=== PATIENT | male | born 1970 | race Caucasian/White ===

== ENCOUNTER 2019-02-09 07:20 | Inpatient (IN) ==
[2019-02-09] MEDS ORDERED: SODIUM CHLORIDE 0.9% INJ ONE (07:51)
[2019-02-09] MEDS ORDERED: PROTONIX IV ONE (07:51)
[2019-02-09] MEDS ORDERED: MORPHINE IV ONE ×2 (07:51→11:11)
[2019-02-09] MEDS ORDERED: ZOFRAN IV ONE (07:51)
[2019-02-09] MEDS ORDERED: NS 1,000 ML IV ONE ×2 (07:51→11:17)
--- NOTE | 2019-02-09 08:39 | EKG Report ---
Test Performed on : 02/09/2019 07:39:36 AM Test Reason : epigastric pain Blood Pressure : / mmHG Vent. Rate : 085 BPM Atrial Rate : 085 BPM P-R Int : 148 ms QRS Dur : 088 ms QT Int : 374 ms P-R-T Axes : 026 001 025 degrees QTc Int : 445 ms Normal sinus rhythm. Normal ECG When compared with ECG of 19-JAN-2017 20:35, aberrant conduction. is no longer present Unconfirmed Result
--- NOTE | 2019-02-09 08:50 | Diag Imaging Result Doc PS360 ---
EXAM: CHEST-PORTABLE 02/09/2019 HISTORY: upright, r/o free air TECHNIQUE: AP portable upright at 0824 COMMENT: There is some pleural thickening bilaterally particularly on the left. The right-sided thickening at the costophrenic angle was not evident on the previous study of 01/19/2017, however there has been no significant change otherwise. IMPRESSION: No evidence of free intra-abdominal gas. Questionable pleural effusion or pleural thickening on the right. Electronically signed by Yosvany Dominguez 02/09/2019 8:47 AM
[2019-02-09 08:56] LABS: BASO# 0.02 X1000 (0.0-0.2); BASO% 0.2 % (0.0-0.8); EOS# 0.04 X1000 (0.0-0.7); EOS% 0.4 % (0.0-10.0); HEMATOCRIT 50.9 % (42.0-52.0); HEMOGLOBIN 16.6 g/dL (14.0-18.0); IMM GRAN# 0.02 X1000 (0.0-0.04); IMM GRAN% 0.2 % (0.0-0.5); LYMPH# 1.81 X1000 (1.2-3.4); LYMPH% 17.4 % (20.5-51.1); MCH 29.5 PG (27-31); MCHC 32.6 g/dL (33-37); MCV 90.4 FL (81-99); MONO% 5.8 % (1.7-9.3); MPV 11.1 FL (7.4-10.4); PLT 306 X1000 (130-400); RBC 5.63 XMIL (4.7-6.1); RDW 13.7 % (11.5-14.5); WBC 10.39 X1000 (4.8-10.8)
[2019-02-09 09:08] LABS: AGAP 16; ALB/GLOB RATIO 1.8; ALBUMIN 4.9 g/dL (3.5-5.0); ALKALINE PHOSPHATASE 75 U/L (32-122); BUN 13 mg/dL (8-22); CALCIUM 10.4 mg/dL (8.8-10.2); CHLORIDE 101 mmol/L (98-107); COSMO 284; CREATININE 0.9 mg/dL (0.7-1.2); ESTIMATED GFR > 60; GLUCOSE 114 mg/dL (70-104); GOT 26 U/L (10-34); GPT 33 U/L (10-44); LIPASE 20 U/L (13-60); MAGNESIUM 2.2 mg/dL (1.5-2.7); POTASSIUM 4.4 mmol/L (3.5-5.1); SODIUM 142 mmol/L (136-145); TCO2 25 mmol/L (25-35); TOTAL BILIRUBIN 0.75 mg/dL (0.20-1.00); TOTAL PROTEIN 7.6 g/dL (6.3-8.3)
[2019-02-09 09:08] LABS: URINE SOURCE CLEAN CATCH
[2019-02-09 09:11] LABS: INR 1.32; PROTIME 16.6 Seconds (11.0-16.0)
[2019-02-09 09:12] LABS: PTT 33.6 Seconds (22.3-41.8)
[2019-02-09 09:14] LABS: BILIRUBIN URINE NEGATIVE (NEGATIVE); BLOOD URINE NEGATIVE (NEGATIVE); COLOR YELLOW; GLUCOSE URINE NEGATIVE (NEGATIVE); KETONE URINE NEGATIVE (NEGATIVE); LEUKOCYTES URINE NEGATIVE (NEGATIVE); NITRITE URINE NEGATIVE (NEGATIVE); PH URINE 8.5; PROTEIN URINE 70 mg/dL (NEGATIVE); SP GRAVITY URINE 1.034; TURBIDITY URINE CLEAR (CLEAR); UR EPITHELIAL CELLS <10 /HPF (<10); URINE BACTERIA NEGATIVE /HPF; URINE RBC <10 /HPF (<10); URINE WBC <10 /HPF (<10); UROBILINOGEN URINE NORMAL (NORMAL)
--- NOTE | 2019-02-09 11:06 | Diag Imaging Result Doc PS360 ---
EXAM: CT ABD/PELVIS W/IV CONT ONLY INDICATION: hx of SBO, LLQ pain with vomiting TECHNIQUE: This exam was performed using automated exposure control, adjustment of mA or kV according to patient size, and/or use of iterative reconstruction technique. COMPARISON: 07/07/2018 FINDINGS: There is mild subsegmental atelectasis at the lung bases. There has been a prior cholecystectomy. There is mild to moderate hepatic steatosis. The spleen, pancreas, adrenal glands, kidneys, and urinary bladder are essentially unremarkable. There are multiple distended loops of small bowel containing fluid and air suggesting a fairly high-grade small bowel obstruction. There is a possible transition point at the anterior right lower quadrant on image 96 of series 4. The distal small bowel is nondistended. The colon is nondistended. There is mild distention of the stomach. There is trace free fluid in the pelvis. IMPRESSION: 1.Multiple distended loops of small bowel suggesting small bowel obstruction with a probable transition point in the right lower quadrant. 2.Other incidental/nonacute findings detailed above. Electronically signed by Derek Trevino 02/09/2019 11:03 AM
[2019-02-09] MEDS ORDERED: ZOSYN 4.5 GM in NS 100 ML IV ONE (11:11)
--- NOTE | 2019-02-09 12:45 | Diag Imaging Result Doc PS360 ---
EXAM: CHEST/ABD TUBE PLACEMENT 02/09/2019 HISTORY: confirm NG placement TECHNIQUE: AP portable semiupright at 1214 COMMENT: There is an NG tube in the fundus of the stomach. IMPRESSION: NG tube in the stomach. Electronically signed by Yosvany Dominguez 02/09/2019 12:43 PM
--- NOTE | 2019-02-09 13:06 | PROVIDER DOCUMENTATION ---
This chart was entered by Lori Martinez Scribe, acting as scribe for Marvin Lackey MD. HPI-Abdominal Pain/GI Problem - General Chief Complaint: Abdominal Pain Stated Complaint: ABD PAIN,VOMITING Time Seen by Provider: 02/09/19 07:42 Source: patient Allergies/Adverse Reactions: Patient Allergies Allergy/AdvReac Type Severity Reaction Status Date / Time No Known Allergies Allergy Verified 02/09/19 09:04 Home Medications: Home Medication List Medication Instructions Recorded Confirmed Last Taken Type Rivaroxaban [Xarelto] 20 mg PO DAILY 09/01/17 02/09/19 02/09/19 07:00 History Levothyroxine [Synthroid] 150 microgm PO DAILY@0700 07/07/18 02/09/19 02/09/19 07:00 History Folic Acid 1 mg PO DAILY 02/09/19 02/09/19 02/09/19 07:00 History - History of Present Illness-ABD Nature of Presenting Problems: Patient is a 49 year old male who presents with upper abdominal pain. States nausea, vomiting, chills and diaphoresis with abdominal pain. Reports symptoms started yesterday. States having dark brown emesis. Reports he is on Xarelto. History of small bowel obstruction due to adhesions from gallbladder surgery. Abdominal Pain Onset Location: reports: other (generalized upper) Pain Radiation: reports: no radiation Quality of Pain: reports: aching Severity in ED: reports: mild Onset/Duration: reports: 24 hours ago Timing: reports: still present Activities at Onset: reports: light activity Associated Symptoms: reports: diaphoresis, fever/chills (chills), nausea, vomiting Emesis Description: reports: other (dark brown) Bruising or Bleeding Gums?: No Similar Symptoms Previously?: Yes Recently seen or treated by another doctor?: No Review of Systems - Adult - REVIEW OF SYSTEMS - ADULT Constitutional: reports: see HPI, chills. denies: fever, fatique Eyes: reports: no symptoms reported Ears, Nose, Mouth & Throat: reports: no symptoms reported Cardiovascular: reports: no symptoms reported Respiratory: reports: no symptoms reported Gastrointestinal: reports: see HPI, abdominal pain (generalized upper), nausea, vomiting. denies: diarrhea Genitourinary: reports: no symptoms reported Musculoskeletal: reports: no symptoms reported Integumentary: reports: no symptoms reported Neurological: reports: no symptoms reported Psychiatric: reports: no symptoms reported Endocrine: reports: no symptoms reported Hematologic/Lymphatic: reports: no symptoms reported Allergic/Immunologic: reports: no symptoms reported All Other Systems: Reviewed and Negative Past History - Adult - PAST MEDICAL HISTORY-ADULT Review of Records: reports: Old Records Reviewed, Nursing Assessment Review, Medications Reviewed, Social history reviewed & non-contributory. Major Childhood Illnesses: reports: denies history Cardiovascular: reports: other (hx DVT) Respiratory: reports: sleep apnea Gastrointestinal: reports: other (SBO) Obstetrical/Gynecological: reports: denies history Genitourinary: reports: denies history Musculoskeletal: reports: denies history Neurological: reports: denies history Endocrine/Immune: reports: thyroid disorder Other Conditions: reports: denies history - PRIOR SURGERIES/PROCEDURES Surgical/Procedure History: reports: cholecystectomy, other (bowel resection) - IMMUNIZATION STATUS Childhood Immunizations: See Nurse Assessment Flu Vaccine: See Nurse Assessment - FAMILY HISTORY Family History: reviewed, not pertinent - SOCIAL HISTORY Smoking: cigarettes (former) Substance Use: denies Physical Exam-General - PHYSICAL EXAM-ADULT Initial Vital Signs Reviewed: Yes - CONSTITUTIONAL General Appearance: alert, no apparent distress. negative: lethargic - EYES Eyes: PERRL/EOMI, pink conjunctivae - HEAD, EARS, NOSE, MOUTH & THROAT HENMT: normocephalic/atraumatic, moist mucous membranes, normal ENT inspection - NECK Neck: non-tender. negative: meningismus - RESPIRATORY Respiratory: chest non-tender, lungs clear, normal breath sounds. negative: crackles, rhonchi - CARDIOVASCULAR Cardiovascular: normal peripheral pulses, regular rate, rhythm. negative: tachycardia - GASTROINTESTINAL (ABDOMEN) Abdominal Exam: soft, abnormal bowel sounds (hypo active bowel sounds), guarding (LUQ), tenderness (diffuse; worse in LLQ). negative: rigid - GENITOURINARY Rectal Exam: normal rectal tone, other (brown stool present.). negative: black stool, blood streaked stool Hemoccult Exam: heme negative stool - LYMPHATIC Lymphatic: no adenopathy - MUSCULOSKELETAL Back Exam: normal inspection, no vertebral tenderness Extremity: normal inspection. negative: deformity, pedal edema - SKIN Integumentary: normal color, normal turgor, warm/dry. negative: diaphoresis, pallor - NEUROLOGIC Neurologic: grossly normal. negative: aphasia, facial droop - PSYCHIATRIC Psych/Mental Status: normal mood/affect, oriented x 3. negative: anxious Progress - PLAN OF CARE/RESULTS Progress/Plan/Lab Results: Vital Signs - 8 hr 02/09/19 07:27 Temperature 97.6 F Pulse Rate 95 H Respiratory Rate 19 Blood Pressure 137/96 O2 Sat by Pulse Oximetry 94 L Laboratory Results - last 24 hr 02/09/19 02/09/19 02/09/19 08:03 08:03 08:03 WBC 10.39 RBC 5.63 Hgb 16.6 Hct 50.9 MCV 90.4 MCH 29.5 MCHC 32.6 L RDW Std Deviation 13.7 Plt Count 306 MPV 11.1 H Immature Gran % (Auto) 0.2 Neut % (Auto) 76.0 H Lymph % (Auto) 17.4 L [place] % (Auto) 5.8 Eos % (Auto) 0.4 Baso % (Auto) 0.2 Immature Gran # (Auto) 0.02 Neut # (Auto) 7.90 H Lymph # (Auto) 1.81 [place] # (Auto) 0.60 H Eos # (Auto) 0.04 Baso # (Auto) 0.02 PT INR PTT (Actin FS) Sodium 142 Potassium 4.4 Chloride 101 Carbon Dioxide 25 Anion Gap 16 BUN 13 Creatinine 0.9 Estimated GFR/1.73 m2 > 60 BUN/Creatinine Ratio 14 Glucose 114 H Calculated Osmolality 284 Calcium 10.4 H Magnesium 2.2 Total Bilirubin 0.75 AST 26 ALT 33 Alkaline Phosphatase 75 Troponin T Total Protein 7.6 Albumin 4.9 Globulin 2.7 Albumin/Globulin Ratio 1.8 Lipase 20 Plasma Lactate 2.3 H Urine Source Urine Color Urine Turbidity Urine pH Ur Specific [place] Urine Protein Ur Glucose (Stick) Ur Ketones (Stick) Urine Blood Urine Nitrite Urine Bilirubin Urobilinogen Dipstick Urine Leukocytes Urine WBC (Auto) Urine RBC (Auto) U Epithel Cells (Auto) Urine Bacteria (Auto) Blood Type Blood Type Confirm Antibody Screen 02/09/19 02/09/19 02/09/19 08:03 08:03 08:03 WBC RBC Hgb Hct MCV MCH MCHC RDW Std Deviation Plt Count MPV Immature Gran % (Auto) Neut % (Auto) Lymph % (Auto) [place] % (Auto) Eos % (Auto) Baso % (Auto) Immature Gran # (Auto) Neut # (Auto) Lymph # (Auto) [place] # (Auto) Eos # (Auto) Baso # (Auto) PT 16.6 H INR 1.32 PTT (Actin FS) 33.6 Sodium Potassium Chloride Carbon Dioxide Anion Gap BUN Creatinine Estimated GFR/1.73 m2 BUN/Creatinine Ratio Glucose Calculated Osmolality Calcium Magnesium Total Bilirubin AST ALT Alkaline Phosphatase Troponin T < 0.010 Total Protein Albumin Globulin Albumin/Globulin Ratio Lipase Plasma Lactate Urine Source Urine Color Urine Turbidity Urine pH Ur Specific [place] Urine Protein Ur Glucose (Stick) Ur Ketones (Stick) Urine Blood Urine Nitrite Urine Bilirubin Urobilinogen Dipstick Urine Leukocytes Urine WBC (Auto) Urine RBC (Auto) U Epithel Cells (Auto) Urine Bacteria (Auto) Blood Type O POSITIVE Blood Type Confirm Antibody Screen NEGATIVE 02/09/19 02/09/19 08:45 09:32 WBC RBC Hgb Hct MCV MCH MCHC RDW Std Deviation Plt Count MPV Immature Gran % (Auto) Neut % (Auto) Lymph % (Auto) [place] % (Auto) Eos % (Auto) Baso % (Auto) Immature Gran # (Auto) Neut # (Auto) Lymph # (Auto) [place] # (Auto) Eos # (Auto) Baso # (Auto) PT INR PTT (Actin FS) Sodium Potassium Chloride Carbon Dioxide Anion Gap BUN Creatinine Estimated GFR/1.73 m2 BUN/Creatinine Ratio Glucose Calculated Osmolality Calcium Magnesium Total Bilirubin AST ALT Alkaline Phosphatase Troponin T Total Protein Albumin Globulin Albumin/Globulin Ratio Lipase Plasma Lactate Urine Source CLEAN CATCH Urine Color YELLOW Urine Turbidity CLEAR Urine pH 8.5 Ur Specific [place] 1.034 Urine Protein 70 A Ur Glucose (Stick) NEGATIVE Ur Ketones (Stick) NEGATIVE Urine Blood NEGATIVE Urine Nitrite NEGATIVE Urine Bilirubin NEGATIVE Urobilinogen Dipstick NORMAL Urine Leukocytes NEGATIVE Urine WBC (Auto) <10 Urine RBC (Auto) <10 U Epithel Cells (Auto) <10 Urine Bacteria (Auto) NEGATIVE Blood Type Blood Type Confirm O POSITIVE Antibody Screen Orders Category Date Time Status Nursing- Obtain EKG once Care 02/09/19 07:49 Active Saline Loc NOW Care 02/09/19 07:49 Active NPO Diet 02/09/19 07:49 Active CHEST-PORTABLE [RAD] Stat Exams 02/09/19 07:[address] ABD/PELVIS W/IV CONT ONLY [CT] Stat Exams 02/09/19 07:51 Ordered BLOOD CULTURE [BLDCUL] Stat Lab 02/09/19 09:22 Results CBC WITH ELECTRONIC DIFF [HEME] Stat Lab 02/09/19 08:03 Completed COMPREHENSIVE METABOLIC PANEL [CHEM] Stat Lab 02/09/19 08:03 Completed LACTATE, PLASMA [CHEM] Stat Lab 02/09/19 08:03 Completed LIPASE [CHEM] Stat Lab 02/09/19 08:03 Completed MAGNESIUM [CHEM] Stat Lab 02/09/19 08:03 Completed OCCULT BLOOD SCREENING [STOOL] Stat Lab 02/09/19 07:50 Uncollected PROTIME WITH INR [COAG] Stat Lab 02/09/19 08:03 Completed PTT [COAG] Stat Lab 02/09/19 08:03 Completed TROPONIN T Stat Lab 02/09/19 08:03 Completed TYPE & SCREEN [BBK] Stat Lab 02/09/19 08:03 Completed URINALYSIS W/POSS RFLX CULT [URINALYSIS] Stat Lab 02/09/19 08:45 Completed 0.9% Sodium Chloride Inj [Ns] 1,000 ml Med 02/09/19 07:51 Discontinued IV 999 mls/hr Morphine Med 02/09/19 07:51 Discontinued 4 mg IV NOW ONE Ondansetron [Zofran] Med 02/09/19 07:51 Discontinued 4 mg IV NOW ONE Pantoprazole [Protonix] Med 02/09/19 07:51 Discontinued 40 mg IV NOW ONE Sodium Chloride 0.9% Med 02/09/19 07:51 Discontinued 10 ml INJ NOW ONE EKG [EKG] Stat Ther 02/09/19 07:49 Draft Result Diagrams: 02/09/19 08:03 02/09/19 08:03 - REASSESSMENT Reassessment #1 Time Reassessed: 11:18 Status: improving (Patient given IVF, IV morphine/zofran. Lactate elevated, so given IV zosyn as well. NGT ordered. Also given IV protonix. Dr. Almaguer last operated for SBO/adhesionolysis 2 years ago. OLD CHART reviewed.) - EKG 1 Time of EKG reading by physician:: 07:44 EKG Read and Signed by:: Marvin Lackey EKG Interpretation (*Must complete 3 of following elements*): Normal Rate: 85 Rhythm: normal sinus rhythm [place]: normal QRS: normal MS Interval: normal ST Wave: normal Comments: normal ECG; no STEMI - XRAY 1 XRAY Study: Chest Impression: See EMR Report ( EXAM: CHEST-PORTABLE 02/09/2019 HISTORY: upright, r/o free air TECHNIQUE: AP portable upright at 0824 COMMENT: There is some pleural thickening bilaterally particularly on the left. The right-sided thickening at the costophrenic angle was not evident on the previous study of 01/19/2017, however there has been no significant change otherwise. IMPRESSION: No evidence of free intra-abdominal gas. Questionable pleural effusion or pleural thickening on the right. Electronically signed by Yosvany Dominguez 02/09/2019 8:47 AM 02/09/19 0847 Interpreting Physician: Yosvany Dominguez MD Dictated Date/Time: 02/09/19 0846 cc: Marvin Lackey MD; Artur Keys DO) 2 XRAY Study: Chest, Abdomen, other (TUBE PLACEMENT) Impression: See EMR Report (Signed EXAM: CHEST/ABD TUBE PLACEMENT 02/09/2019 HISTORY: confirm NG placement TECHNIQUE: AP portable semiupright at 1214 COMMENT: There is an NG tube in the fundus of the stomach. IMPRESSION: NG tube in the stomach. Electronically signed by Yosvany Dominguez 02/09/2019 12:43 PM 02/09/19 1243 Interpreting Physician: Yosvany Dominguez MD Dictated Date/Time: 02/09/19 1242 cc: Marvin Lackey MD; Artur Keys DO) - CT/MRI 2 CT Study: Abdomen Impression: Abnormal (Signed EXAM: CT ABD/PELVIS W/IV CONT ONLY INDICATION: hx of SBO, LLQ pain with vomiting TECHNIQUE: This exam was performed using automated exposure control, adjustment of mA or kV according to patient size, and/or use of iterative reconstruction technique. COMPARISON: 07/07/2018 FINDINGS: There is mild subsegmental atelectasis at the lung bases. There has been a prior cholecystectomy. There is mild to moderate hepatic steatosis. The spleen, pancreas, adrenal glands, kidneys, and urinary bladder are essentially unremarkable. There are multiple distended loops of small bowel containing fluid and air suggesting a fairly high-grade small bowel obstruction. There is a possible transition point at the anterior right lower quadrant on image 96 of series 4. The distal small bowel is nondistended. The colon is nondistended. There is mild distention of the stomach. There is trace free fluid in the pelvis. IMPRESSION: 1.Multiple distended loops of small bowel suggesting small bowel obstruction with a probable transition point in the right lower quadrant. 2.Other incidental/nonacute findings detailed above. Electronically signed by Derek Trevino 02/09/2019 11:03 AM 02/09/19 1103 Interpreting Physician: Deerk Trevino MD Dictated Date/Time: 02/09/19 1057 cc: Marvin Lackey MD; Artur Keys DO), See EMR Report - CONSULTS/PCP/HOSPITALIST Notification #1 *Consult/PCP/Hospitalist*: Dr. Steel paged at 1118, 1145, 1222, 1258 Time Discussed: 13:04 Reason/Comments: Dr. Lackey consulted with Dr. Steel about patient. Consult Disposition: Admit Departure - Departure Date of Disposition Decision: 02/09/19 Time of Disposition Decision: :19 DIAGNOSIS: Small bowel obstruction due to postoperative adhesions Sepsis without acute organ dysfunction Qualifiers: Sepsis type: sepsis due to unspecified organism Qualified Code(s): A41.9 - Sepsis, unspecified organism Disposition: ADMITTED INPATIENT 09 Certified Medical Emergency: Emergent Condition: Fair Referrals and Follow-Ups: Artur Keys DO [Primary Care Provider] - - Critical Care Note This patient required my direct & personal management of CC.: No Attestation - Physician/ JUNIOR Attestation Patient care was provided by Advanced Practice Provider:: No The physician spent face to face time with patient:: Yes Advanced Practice Provider documentation review:: Supervising physician onsite and consulted in the evaluation and care of this patient. The physician did have a face to face encounter with the patient. This chart was documented by the indicated scribe, (Lori Martinez Scribe) and accurately reflects the services I performed and decisions made by me, Marvin Lackey MD, as attested by the provider's signature.
[2019-02-09] MEDS ORDERED: ZOFRAN IV PRN (14:42)
[2019-02-09] MEDS: D5 1/2 NS + KCL 20 MEQ 1,000 ML IV SCH (18:55)
[2019-02-09] MEDS: OFIRMEV 1000 MG/ISOTONIC SOLN 1,000 MG/100 ML BOTTLE IV PRN (18:55)
--- NOTE | 2019-02-10 01:17 | HISTORY AND PHYSICAL ---
HISTORY OF PRESENT ILLNESS: Saul Escobar is a 49-year-old white male who presented to our emergency department with a 24 to 48-hour history of increasing abdominal pain, epigastric pain, nausea and vomiting. He was evaluated in the emergency department which included a CT scan of his abdomen and pelvis, which suggested a small-bowel obstruction. He has had previous surgery per Dr. Almaguer with lysis of adhesions. He has also had a history of cholecystectomy. PAST MEDICAL HISTORY: History of DVT, left lower extremity; hypothyroidism. MEDICATIONS: Folic acid, Synthroid and Xarelto. ALLERGIES: No known drug allergies. SOCIAL HISTORY: His is at the bedside with his children. He is a former smoker. He is overweight. FAMILY HISTORY: Reviewed with the patient and is noncontributory. REVIEW OF SYSTEMS: A 14-point review of systems was performed and was essentially negative. PHYSICAL EXAMINATION: GENERAL: On exam, Mr. Saul Escobar is an overweight middle-aged white male. He has an NG tube in place. He is in no acute distress. He is awake and cooperative. He is 270 pounds, 6 feet 1 inch. NEUROLOGIC: He has no focal deficits. HEENT: He has no jaundice. No oral lesions. Satisfactory dentition. LYMPHATIC: No cervical or supraclavicular lymphadenopathy. HEART: Regular rate. LUNGS: Clear to auscultation and percussion bilaterally. ABDOMEN: Distended but not tightly so. It is not tender. BACK: He had no costovertebral tenderness. RECTAL: Exam was not performed. EXTREMITIES: He does have palpable femoral pulses. No significant peripheral edema. DIAGNOSTIC DATA: I reviewed the CT scan. It shows some dilated loops of small bowel and dilated stomach, consistent with partial or small-bowel obstruction. He states that his last bowel movement was yesterday, and he has passed some flatus. Clinically, he states that he is the same as when he presented to the emergency department. LABORATORY DATA: His white blood cell count is normal. Hematocrit is 50%. BUN and creatinine are 13 and 0.9. Liver function tests are within normal limits. His PT is 16.6, INR 1.32. PLAN: We will continue NG tube, IV fluids. We will repeat an abdominal film tomorrow. We will change the Xarelto to Lovenox, in hopes that conservative treatment of this bowel obstruction will be successful. I discussed his care with him and with his at the bedside. cc: Gracie Steel MD
[2019-02-10] MEDS: MORPHINE IV PRN (02:55)
[2019-02-10] MEDS: LOVENOX SUBQ SCH (05:49)
[2019-02-10] MEDS: D5 1/2 NS + KCL 20 MEQ 1,000 ML IV SCH ×2 (05:52→21:15)
[2019-02-10 07:00] LABS: BASO# 0.01 X1000 (0.0-0.2); BASO% 0.1 % (0.0-0.8); EOS% 1.1 % (0.0-10.0); HEMATOCRIT 44.2 % (42.0-52.0); HEMOGLOBIN 14.4 g/dL (14.0-18.0); LYMPH# 2.24 X1000 (1.2-3.4); MCH 30.4 PG (27-31); MCHC 32.6 g/dL (33-37); MCV 93.2 FL (81-99); MONO# 0.64 X1000 (0.11-0.59); MONO% 7.1 % (1.7-9.3); MPV 10.9 FL (7.4-10.4); NEUT# 5.98 X1000 (1.4-6.5); NEUT% 66.7 % (42.2-75.2); PLT 229 X1000 (130-400); RBC 4.74 XMIL (4.7-6.1); RDW 13.6 % (11.5-14.5); WBC 8.97 X1000 (4.8-10.8)
[2019-02-10 07:43] LABS: AGAP 11; BUN 12 mg/dL (8-22); CALCIUM 8.7 mg/dL (8.8-10.2); CHLORIDE 103 mmol/L (98-107); COSMO 280; CREATININE 0.8 mg/dL (0.7-1.2); ESTIMATED GFR > 60; GLUCOSE 105 mg/dL (70-104); POTASSIUM 4.1 mmol/L (3.5-5.1); SODIUM 140 mmol/L (136-145); TCO2 26 mmol/L (25-35)
--- NOTE | 2019-02-10 08:22 | Diag Imaging Result Doc PS360 ---
EXAM: FLAT/UPRIGHT ABD/1 VIEW CHEST INDICATION: SBO TECHNIQUE: 3 views COMPARISON: Chest radiograph dated 02/09/2019 FINDINGS: The NG tube is in stable position. There are a few moderately gas-distended loops of small bowel throughout the abdomen, mainly in the left upper quadrant compatible with known small bowel obstruction seen on previous CT. There is no evidence of large volume free abdominal gas. There is no evidence of organomegaly. There is stable chronic pleural thickening bilaterally. There is mild subsegmental atelectasis at the left lung base. The lungs are grossly clear, otherwise. The cardiomediastinal silhouette and central vasculature are grossly unremarkable. IMPRESSION: 1.Distended loops of small bowel consistent with obstruction as seen on recent CT. 2.Mild left basilar subsegmental atelectasis. Electronically signed by Derek Trevino 02/10/2019 8:19 AM
[2019-02-10] MEDS: OFIRMEV 1000 MG/ISOTONIC SOLN 1,000 MG/100 ML BOTTLE IV PRN (10:12)
--- NOTE | 2019-02-10 12:40 | GENERAL SURGERY PROGRESS NOTE ---
DATE: 02/10/2019 SUBJECTIVE: The patient seems to be doing a little bit better. He still has some soreness. He was admitted by my partner, Dr. Steel, last night. OBJECTIVE: Vital Signs: The patient is currently afebrile. His vital signs are stable. General: No acute distress. HEENT: Normocephalic, atraumatic. Pupils equal, round, reactive to light. Mucous membranes moist. Oropharynx benign. Neck: Supple. Trachea midline. Cardiovascular: Regular rate and rhythm. Lungs: Grossly clear. Abdomen: Soft, distended, but really not tender at this moment. Extremities: Moves all extremities. Neurologic: Grossly intact. Skin: No signs of jaundice. Vascular: All extremities perfused. LABORATORY DATA: Reviewed. IMAGING: Reviewed. ASSESSMENT AND PLAN: A 49-year-old gentleman with small-bowel obstruction. 1. Small-bowel obstruction. At this time, will continue current nonoperative management. 2. History of deep venous thrombosis. At this time, the most recent one was in April, which showed chronic nonocclusive, but we will keep him on Lovenox. cc: MD Gracie Pichardo MD
[2019-02-11] MEDS: MORPHINE IV PRN (00:12)
[2019-02-11] MEDS: D5 1/2 NS + KCL 20 MEQ 1,000 ML IV SCH (05:55)
[2019-02-11] MEDS: LOVENOX SUBQ SCH (05:56)
--- NOTE | 2019-02-11 11:31 | GENERAL SURGERY PROGRESS NOTE ---
DATE: 02/11/2019 SUBJECTIVE: Patient seems to be doing okay. He has passed gas, had a bowel movement. He is not sick to his stomach. OBJECTIVE: Vital Signs: Patient is currently afebrile. His vital signs are stable. General: No acute distress. HEENT: Normocephalic, atraumatic. Pupils equal, round, reactive to light. Mucous membranes moist. Oropharynx benign. Neck: Supple. Trachea midline. Cardiovascular: Regular rate and rhythm. Lungs: Grossly clear. Abdomen: Soft. Still somewhat distended. Bowel sounds auscultated. Extremities: Moves all extremities. Neurologic: Grossly intact. Skin: No signs of jaundice. Vascular: All extremities perfused. LABORATORY: None this morning as of yet. ASSESSMENT AND PLAN: A 49-year-old gentleman with resolving small bowel obstruction. Resolving small bowel obstruction. At this time, we will remove his nasogastric tube and give him clear liquids. We will see how he does. Stressed with the patient that he did not force anything down. If he gets sick to his stomach to let the nurses know. cc: MD Gracie Pichardo MD
[2019-02-12] MEDS: LOVENOX SUBQ SCH (05:30)
[2019-02-12] MEDS: FOLIC ACID PO SCH (09:33)
[2019-02-12] MEDS: SYNTHROID PO SCH (09:39)
[2019-02-12] MEDS: XARELTO PO SCH (09:40)
--- NOTE | 2019-02-12 15:11 | GENERAL SURGERY PROGRESS NOTE ---
DATE: 02/12/2019 SUBJECTIVE: The patient is doing well, passing gas, having bowel movement, feeling a whole lot better. OBJECTIVE: Vital Signs: The patient is currently afebrile. His vital signs are stable. General: No acute distress. HEENT: Normocephalic, atraumatic. Pupils equal, round, reactive to light. Mucous membranes moist. Oropharynx benign. Neck: Supple. Trachea midline. Cardiovascular: Regular rate and rhythm. Lungs: Grossly clear. Abdomen: Soft nontender, nondistended at this point. Bowel sounds auscultated. Extremities: Moves all extremities. Neurologic: Grossly intact. Skin: No signs of jaundice. Vascular: All extremities perfused. LABORATORY DATA: None this morning as of yet. ASSESSMENT AND PLAN: A 49-year-old gentleman with resolving small bowel obstruction. 1. Resolving small bowel obstruction. At this time, we will advance to a regular diet. Hopefully, he can be discharged home tomorrow. 2. History of deep vein thrombosis. At this time, we will restart his Xarelto and stop his Lovenox. cc: MD Gracie Pichardo MD
[2019-02-12] MEDS: D5 1/2 NS + KCL 20 MEQ 1,000 ML IV SCH (16:06)
[2019-02-13] MEDS: SYNTHROID PO SCH (06:19)
[2019-02-13] MEDS: D5 1/2 NS + KCL 20 MEQ 1,000 ML IV SCH (06:23)
[2019-02-13 08:16] VITALS: BP 125/67
[2019-02-13] MEDS: FOLIC ACID PO SCH (09:26)
[2019-02-13] MEDS: XARELTO PO SCH (09:28)
--- NOTE | 2019-02-14 02:05 | GENERAL SURGERY PROGRESS NOTE ---
DATE: 02/13/2019 SUBJECTIVE: The patient is doing well. He denies abdominal pain, nausea, or vomiting. He is tolerating his diet and having bowel movements. OBJECTIVE: Vital signs: He is afebrile. Vital signs are stable. General: He is awake, alert, oriented x3. No acute distress. Gastrointestinal: Soft, nontender, nondistended. ASSESSMENT AND PLAN: A 49-year-old male who has resolved his small-bowel obstruction. He will be discharged home. He will follow up with Dr. Almaguer. cc: MD Gracie Reeves MD
--- NOTE | 2019-02-15 23:52 | DISCHARGE SUMMARY ---
ADMISSION DATE: 02/09/2019 DISCHARGE DATE: 02/13/2019 DISCHARGE DIAGNOSIS: Small bowel obstruction status post abdominal surgery. POSTOPERATIVE DIAGNOSIS: Small bowel obstruction status post abdominal surgery. PRINCIPAL PROCEDURE: 1. Abdominal and pelvic CT scan 02/09/2019. 2. Nasogastric tube placement 02/09/2019. DISCHARGE DISABILITY: Full. DISCHARGE DIET: Regular . DISCHARGE DISPOSITION: He will follow up with Dr. Almaguer in his outpatient offices. DISCHARGE MEDICATIONS: He is to return to his home medications. HOSPITAL COURSE: Mr. Saul Escobar is a 49-year-old white male who presented to our emergency department on 02/09/2019 with abdominal distention, pain, nausea and vomiting. The CT scan suggested a small bowel obstruction. He had a history of abdominal surgery in the past by Dr. Almaguer. 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 Dr. Almaguer took over his care 02/10/2019 and with conservative treatment his small-bowel obstruction resolved. It was felt safe to discharge him home per Dr. Joe Sawant 02/11/2019 under the care of his family. At discharge he was tolerating a diet, his abdomen is flat and he is having bowel activity. His heart rate was 60, blood pressure 125/67, O2 saturation 97%. He was afebrile. He knows to contact us with any increasing abdominal distention or pain. cc: Gracie Steel MD
== END 2019-02-13 12:09 | disposition home or self-care (01) | DRG 390 ==
LOC: ED 07:20 → 4N 07:21
PROVIDERS: ADMIT Surgery; ATTEND Surgery